=== PATIENT | male | born 1975 | race Caucasian/White ===

== ENCOUNTER 2020-11-26 10:41 | Observation (INO) | payer BC ==
[2020-11-26] MEDS ORDERED: Ketorolac 30 MG/ML SDV IVPUSH PRN (10:51)
[2020-11-26] MEDS ORDERED: Morphine 2 MG/ML SYRINGE IVPUSH PRN (10:51)
[2020-11-26] MEDS ORDERED: Ondansetron 4 MG/2 ML SDV IV PRN (10:51)
[2020-11-26] MEDS ORDERED: Sodium Chloride 0.9% 10 ML Syringe FLUSH PRN (10:51)
[2020-11-26] MEDS: Sodium Chloride 0.9% 1,000 ML IV SCH ×2 (11:37→21:34)
--- NOTE | 2020-11-26 11:37 | PCM.HP.2 ---
H&P History of Present Illness - General Date of Service: 11/26/20 Admit Problem/Dx: Admission Diagnosis/Problem Admission Diagnosis/Problem Flank pain Source of Information: Patient, Old Records History Limitations: Reports: No Limitations Left Flank Pain Score (Numeric/FACES): 7 - Related Data Allergies/Adverse Reactions: Allergies Allergy/AdvReac Type Severity Reaction Status Date / Time No Known Allergies Allergy Verified 11/26/20 10:49 Home Medications: Home Meds amLODIPine [Norvasc] 10 mg PO DAILY 11/04/18 [History] Ascorbic Acid [Vitamin C] 250 mg PO DAILY 11/26/20 [History] Aspirin [Ecotrin EC] 81 mg PO DAILY 11/26/20 [History] Betamethasone/Clotrimazole [Lotrisone] 0.5 gm TOP BID 11/26/20 [History] Calcium Carb/Magnesium Hydrox [Rolaids Chewable Tablet] 1 each PO ASDIRECTED PRN 11/26/20 [History] Cholecalciferol (Vitamin D3) [Vitamin D3] 1,000 unit PO DAILY 11/26/20 [History] Milk Thistle 500 mg PO DAILY 11/26/20 [History] Non-Formulary Medication [NF Drug] 1 tab PO DAILY 11/26/20 [History] Omeprazole 20 mg PO DAILY PRN 11/26/20 [History] Phentermine HCl [Adipex-P] 37.5 mg PO DAILY 11/26/20 [History] Topiramate [Topamax] 25 mg PO DAILY 11/26/20 [History] Vitamin E 100 units PO DAILY 11/26/20 [History] Tamsulosin [Flomax] 0.4 mg PO PCBREAKFAST #14 cap.er 11/27/20 [Rx] Past Medical History HEENT History: Reports: None Cardiovascular History: Reports: Hypertension Respiratory History: Reports: None Gastrointestinal History: Reports: GERD Genitourinary History: Reports: None Musculoskeletal History: Reports: None Neurological History: Reports: None Psychiatric History: Reports: None Endocrine/Metabolic History: Reports: Obesity/BMI 30+ Hematologic History: Reports: None Oncologic (Cancer) History: Reports: None Dermatologic History: Reports: None - Infectious Disease History Infectious Disease History: Reports: None - Past Surgical History HEENT Surgical History: Reports: None GI Surgical History: Reports: None Musculoskeletal Surgical History: Reports: None Social & Family History - Caffeine Use Caffeine Use: Reports: Soda H&P Review of Systems - Review of Systems: Review Of Systems: See Below General: Reports: No Symptoms. Denies: Fever, Chills, Weakness, Decreased Appetite HEENT: Reports: No Symptoms. Denies: Headaches, Sore Throat Pulmonary: Reports: No Symptoms. Denies: Shortness of Breath, Wheezing, Cough Cardiovascular: Reports: No Symptoms. Denies: Chest Pain, Palpitations, Edema Gastrointestinal: Reports: No Symptoms. Denies: Constipation, Diarrhea Genitourinary: Reports: Hematuria, Flank Pain Skin: Reports: No Symptoms Psychiatric: Reports: No Symptoms Neurological: Reports: No Symptoms Hematologic/Lymphatic: Reports: No Symptoms Immunologic: Reports: No Symptoms Exam - Exam Exam: See Below - Vital Signs Vital Signs: Last Vital Signs Temp 96 F L 11/26/20 10:44 Pulse 67 11/26/20 10:44 Resp 26 H 11/26/20 10:44 BP 139/86 11/26/20 10:44 Pulse Ox 98 11/26/20 10:51 Weight: 331 lb 3.2 oz - Exam Quality Assessment: No: Supplemental Oxygen, Urinary Catheter General: Alert, Oriented, Cooperative HEENT: Conjunctiva Clear, Mucosa Moist & [place], Pupils Equal Neck: Supple, Trachea Midline Lungs: Clear to Auscultation, Normal Respiratory Effort Cardiovascular: Regular Rate, Regular Rhythm GI/Abdominal Exam: Normal Bowel Sounds, Soft, Non-Tender, No Distention (Male) Exam: Deferred Rectal (Males) Exam: Deferred Back Exam: Normal Inspection, Full Range of Motion Extremities: Normal Inspection, Normal Range of Motion, Non-Tender, No Pedal E rei, Normal Capillary Refill Peripheral Pulses: 2+: Dorsalis Pedis (L), Dorsalis Pedis (R) Skin: Warm, Dry, Intact Neurological: Cranial Nerves Intact, Reflexes Equal Bilateral Neuro Extensive - Mental Status: Alert, Oriented x3, Normal Mood/Affect, Normal Cognition, Memory Intact Neuro Extensive - Motor, Sensory, Reflexes: Normal Gait, Normal Reflexes Psychiatric: Alert, Normal Affect, Normal Mood - Patient Data Result Diagrams: 11/27/20 07:15 11/26/20 11:25 Sepsis Event Note - Focused Exam Vital Signs: Vital Signs Temp Pulse Resp BP Pulse Ox Pulse Ox 11/26/20 10:51 98 11/26/20 10:44 96 F L 67 26 H 139/86 98 Problem List Initiated/Reviewed/Updated: Yes Orders Last 24hrs: Active Orders 24 hr Category Date Time Status Patient Status [ADT] Routine ADT 11/26/20 10:51 Ordered Intake and Output [RC] QSHIFT Care 11/26/20 10:51 Ordered Oxygen Therapy [RC] PRN Care 11/26/20 10:51 Ordered Peripheral IV Care [RC] . DIRECTED Care 11/26/20 10:52 Ordered Up ad Katie [RC] ASDIRECTED Care 11/26/20 10:51 Ordered VTE/DVT Education [RC] PER UNIT ROUTINE Care 11/26/20 10:51 Ordered Vital Signs [RC] Q4H Care 11/26/20 10:51 Ordered Clear Liquid Diet [DIET] Diet 11/26/20 Lunch Ordered Abdomen wo Cont [CT] Routine Exams 11/26/20 10:56 Ordered C-REACTIVE PROTEIN [CHEM] Stat Lab 11/26/20 10:51 Ordered CBC WITH AUTO DIFF [HEME] Stat Lab 11/26/20 10:51 Ordered COMPREHENSIVE METABOLIC PN,CMP [CHEM] Stat Lab 11/26/20 10:51 Ordered CORONAVIRUS COVID-19 RAPID [MOLEC] Stat Lab 11/26/20 10:45 Ordered Ketorolac [Toradol] Med 11/26/20 10:51 Ordered 30 mg IVPUSH Q6H PRN Morphine Med 11/26/20 10:51 Ordered 3 mg IVPUSH Q4H PRN Ondansetron [Zofran] Med 11/26/20 10:51 Ordered 4 mg IV Q6H PRN Sodium Chloride 0.9% [Normal Saline] 1,000 ml Med 11/26/20 11:00 Ordered IV ASDIRECTED Sodium Chloride 0.9% [Saline Flush] Med 11/26/20 10:51 Ordered 10 ml FLUSH Q8HR PRN Peripheral IV Insertion Adult [OM.PC] Routine Oth 11/26/20 10:51 Ordered Resuscitation Status Routine Resus Stat 11/26/20 10:51 Ordered Medication Orders Sodium Chloride (Normal Saline) 1,000 mls @ 100 mls/hr IV ASDIRECTED MIRIAM Ketorolac Tromethamine (Ketorolac 30 Mg/Ml Sdv) 30 mg IVPUSH Q6H PRN PRN Reason: Pain (moderate 4-6) Morphine Sulfate (Morphine 2 Mg/Ml Syringe) 3 mg IVPUSH Q4H PRN PRN Reason: Pain (severe 7-10) Ondansetron HCl (Ondansetron 4 Mg/2 Ml Sdv) 4 mg IV Q6H PRN PRN Reason: Nausea/Vomiting Sodium Chloride (Sodium Chloride 0.9% 10 Ml Syringe) 10 ml FLUSH Q8H PRN PRN Reason: keep vein open Assessment/Plan Comment:: HPI summary: Luis Antonio is a 44y obese male patient who presented to the [facility] this morning complaining of acute onset sharp pains to the left flank area which radiated to the left abdomen. Pain started while he was on his way to work around [address] Grove, patient was pacing around the exam room and it was difficult to obtain a comprehensive history and exam during office visit due to reported severe flank pain. UA dipstick obtained at [facility] indicates moderate blood and trace protein, otherwise negative. Patient refused ketorolac in clinic stating he wanted to just go to the hospital. Patient was referred to medical information specialist provider for direct admission to rule out renal stone given acute onset of sharp flank pain and hematuria. Patient admitted on observation status for renal stone workup including CBC, CMP, CT abdomen/pelvis without contrast. Will initiate IV fluids at 100ml/hr and strain urine for renal stones. Hospital course: 11/26/20: Patient appears rather comfortable lying in bed upon admit to [facility]. Patient states his pain has been reportedly rather severe at 10/10 at times. Pain currently 7/10 and sharp in nature. Denies a history of similar pain or past kidney stones. Denies gross hematuria. He has otherwise been feeling well. Denies fever chills, headache, sore throat, abdominal pain, constipation, diarrhea. VSS: T 96, HR 67, BP 139/86, RR 26, O2 98% on room air. Hospitalization problems and plan: # Left flank pain - Morphine 3mg Q4H PRN severe pain; Ketorolac 30mg IV Q6H PRN moderate pain - CBC - mild leukocytosis with WBC 12.27, 83.2% neutrophils; repeat CBC in am. - CMP - Na 142, K 4.1, BUN 19, Creatinine 1.08, GFR > 60. - CRP slightly elevated at 1.9 - CT abdomen/pelvis without contrast result indicates non-specific stranding of the perinephritic and periureter which could relate to urinary infection or recent stone passage. UA dipstick not indicative of infectious process. Urine micro pending. Non-obstructing left intrarenal calculus also identified. # Non-obstructing intrarenal calculus - will start patient on flomax 0.4mg PO daily tomorrow - one time dose of lasix 20mg to promote stone passage per Dr Wesley # Hematuria - Moderate amount of blood noted per UA dipstick in [place]; urine microscopic pending. # Nausea - Ondansetron 4mg IV Q6H PRN, nausea Chronic, stable conditions: # Hypertension - continue amlodipine 10mg PO daily # Vitamin D deficiency - continue cholecalciferol daily # Obesity - BMI 46 - continue topamax 25mg PO daily, will hold phentermine per pharmacy request during hospital stay # GERD - continue omeprazole 20mg PO daily # Fatty liver disease # Hx of cholelithiasis without cholecystitis # Family history of heart disease - continue aspirin 81mg PO daily Hospitalization details: # FEN: NS @ 100ml/hr, clear liquid diet # PPX: No DVT ppx indicated, patient ambulatory. Continue home med of omeprazole # Code status: FULL CODE # Emergency contact: Simba (brother): [phone] # Disposition: I anticipate less than 2 midnights for renal stone rule out and treatment as indicated. Patient observation status pending CT results as well as labs. - Mortality Measure Prognosis:: Good
[2020-11-26] MEDS ORDERED: Omeprazole 20 MG Cap.CR PO PRN (11:41)
[2020-11-26 11:57] LABS: ANION GAP 16.5 mmol/L (5-15); CHLORIDE,CL 106 mmol/L (98-107); SODIUM,NA 142 mmol/L (136-145)
--- NOTE | 2020-11-26 12:41 | CT ---
[id number] CT/CT Abdomen Pelvis WO IV EXAM: ABDOMEN AND PELVIS CT WITHOUT CONTRAST INDICATION: RULE OUT RENAL STONE. COMPARISON: None. DISCUSSION: 4 mm nonobstructing left intrarenal calculus. Possible punctate nonobstructing right intrarenal calculus. Minimal left perinephric and periureteral stranding. This could be from urinary tract infection or recently passed stone. Cholelithiasis without CT evidence of acute cholecystitis. Ultrasound could provide further evaluation. Unenhanced images of the liver, pancreas, spleen, adrenal glands, small bowel, large bowel and the appendix are unremarkable. No adenopathy, free air free fluid. Scattered degenerative changes in the spine. The osseous structures are otherwise unremarkable. IMPRESSION: 1. Mild left perinephric and periureteral stranding is nonspecific, but could relate to a urinary tract infection or recent stone passage. No ureteral calculus or hydronephrosis. There are couple of tiny nonobstructing intrarenal calculi. 2. Cholelithiasis. Ronny Joshua MD 11/26/20 [id number] Thank you for allowing us to participate in the care of your patient.
[2020-11-26] MEDS ORDERED: Furosemide 40 MG/4 ML VIAL IVPUSH ONE (14:51)
[2020-11-26] MEDS ORDERED: Morphine 4 MG/ML Syringe IVPUSH PRN (15:15)
[2020-11-27] MEDS: Sodium Chloride 0.9% 1,000 ML IV SCH (07:24)
[2020-11-27] MEDS ORDERED: Cholecalciferol (Vitamin D3) 25 MCG Tab PO SCH (09:00)
[2020-11-27] MEDS ORDERED: Topiramate 25 MG Tab PO SCH (09:00)
[2020-11-27] MEDS ORDERED: Aspirin 81 MG Tab.EC PO SCH (09:00)
[2020-11-27] MEDS ORDERED: amLODIPine 5 MG Tab PO SCH (09:00)
[2020-11-27] MEDS ORDERED: PHENTERMINE HCL 37.5 MG PO SCH (09:00)
[2020-11-27] MEDS ORDERED: Tamsulosin 0.4 MG Cap.ER PO SCH (09:00)
[2020-11-27] MEDS ORDERED: amLODIPine 5 MG Tab **PTOM PO SCH (09:03)
[2020-11-27] MEDS ORDERED: TOPIRAMATE 25 MG PO SCH (09:05)
--- NOTE | 2020-11-27 10:16 | PCM.DCSUM1 ---
Discharge Summary - Hospital Course Free Text/Narrative:: Date of admission: 11/26/20 Date of discharge: 11/27/20 Admission diagnoses: # Left flank pain # Non-obstructing intrarenal calculus # Hematuria # Nausea Discharge diagnoses: # Hypertension - continue amlodipine 10mg PO daily # Vitamin D deficiency - continue cholecalciferol daily # Obesity - BMI 46 - continue topamax 25mg PO daily, will hold phentermine per pharmacy request during hospital stay # GERD - continue omeprazole 20mg PO daily # Fatty liver disease # Hx of cholelithiasis without cholecystitis # Family history of heart disease - continue aspirin 81mg PO daily Hospital course: HPI summary: Luis Antonio is a 44y obese male patient who presented to the [facility] clinic this morning complaining of acute onset sharp pains to the left flank area which radiated to the left abdomen. Pain started while he was on his way to work around [address] Grove, patient was pacing around the exam room and it was difficult to obtain a comprehensive history and exam during office visit due to reported severe flank pain. UA dipstick obtained at [facility] indicates moderate blood and trace protein, otherwise negative. Patient refused ketorolac in clinic stating he wanted to just go to the hospital. Patient was referred to optimization engineer provider for direct admission to rule out renal stone given acute onset of sharp flank pain and hematuria. Patient admitted on observation status for renal stone workup including CBC, CMP, CT abdomen/pelvis without contrast. Will initiate IV fluids at 100ml/hr and strain urine for renal stones. 11/26/20: Patient appears rather comfortable lying in bed upon admit to [facility]. Patient states his pain has been reportedly rather severe at 10/10 at times. Pain currently 7/10 and sharp in nature. Denies a history of similar pain or past kidney stones. Denies gross hematuria. He has otherwise been feeling well. Denies fever chills, headache, sore throat, abdominal pain, constipation, diarrhea. VSS: T 96, HR 67, BP 139/86, RR 26, O2 98% on room air. 11/27/20: Patient reports mild constipation this morning, denies other concerns. No flank pain or nausea. Vitals stable T 97.4, HR 87, BP 125/75, RR 20, O2 98% on room air. Urine microscopy completed at [place] indicates RBC 3-5/hpf and occasional bacteria. No indication of urinary tract infection, no urine culture indicated. WBC normalized this morning on repeat labs to 6.9, neutrophils 59%. No further renal stones passed during overnight hospital stay. Suspect severe flank pain which prompted clinic visit yesterday morning occurred when stone was passing given stranding noted on CT abdomen/pelvis. Patient to be discharged home this morning due to resolution of symptoms. Discharge and follow-up recommendations: - Discharge to home per self care - New medications at discharge: Flomax 0.4mg PO daily - Follow-up with CAIT Harkins on 12/10/20 as previously scheduled. - Discharge Data Discharge Date: 11/27/20 Discharge Disposition: Home, Self-Care 01 Condition: Good - Referral to Home Health Primary Care Physician: CAIT Nolasco-C - Patient Instructions Diet: Usual Diet as Tolerated Driving: May Drive Today Showering/Bathing: May Shower Notify Provider of: Increased Pain, Nausea and/or Vomiting - Discharge Plan *PRESCRIPTION DRUG MONITORING PROGRAM REVIEWED*: Not Applicable *COPY OF PRESCRIPTION DRUG MONITORING REPORT IN PATIENT BHUMI: Not Applicable Prescriptions/Med Rec: Tamsulosin [Flomax] 0.4 mg PO PCBREAKFAST #14 cap.er Home Medications: Home Meds amLODIPine [Norvasc] 10 mg PO DAILY 11/04/18 [History] Ascorbic Acid [Vitamin C] 250 mg PO DAILY 11/26/20 [History] Aspirin [Ecotrin EC] 81 mg PO DAILY 11/26/20 [History] Betamethasone/Clotrimazole [Lotrisone] 0.5 gm TOP BID 11/26/20 [History] Calcium Carb/Magnesium Hydrox [Rolaids Chewable Tablet] 1 each PO ASDIRECTED PRN 11/26/20 [History] Cholecalciferol (Vitamin D3) [Vitamin D3] 1,000 unit PO DAILY 11/26/20 [History] Milk Thistle 500 mg PO DAILY 11/26/20 [History] Non-Formulary Medication [NF Drug] 1 tab PO DAILY 11/26/20 [History] Omeprazole 20 mg PO DAILY PRN 11/26/20 [History] Phentermine HCl [Adipex-P] 37.5 mg PO DAILY 11/26/20 [History] Topiramate [Topamax] 25 mg PO DAILY 11/26/20 [History] Vitamin E 100 units PO DAILY 11/26/20 [History] Tamsulosin [Flomax] 0.4 mg PO PCBREAKFAST #14 cap.er 11/27/20 [Rx] Oxygen Therapy Mode: Room Air - Discharge Summary/Plan Comment DC Time >30 min.: Yes - General Info Date of Service: 11/27/20 Functional Status: Reports: Pain Controlled, Tolerating Diet, Ambulating, Urinating. Denies: New Symptoms - Review of Systems General: Reports: No Symptoms HEENT: Reports: No Symptoms Pulmonary: Reports: No Symptoms Cardiovascular: Reports: No Symptoms Gastrointestinal: Reports: Constipation (mild, bm this morning). Denies: Nausea Genitourinary: Reports: No Symptoms. Denies: Hematuria, Flank Pain Musculoskeletal: Reports: No Symptoms Skin: Reports: No Symptoms Neurological: Reports: No Symptoms Psychiatric: Reports: No Symptoms - Patient Data Vitals - Most Recent: Last Vital Signs Temp 97.4 F 11/27/20 06:46 Pulse 87 11/27/20 06:46 Resp 20 11/27/20 06:46 BP 155/86 H 11/27/20 09:13 Pulse Ox 98 11/27/20 06:46 Weight - Most Recent: 331 lb 3.2 oz I&O - Last 24 hours: Intake & Output 11/26/20 11/27/20 11/27/20 22:59 06:59 14:59 Intake Total 750 1773 Output Total 1700 600 Balance -950 1173 Lab Results - Last 24 hrs: Laboratory Results - last 24 hr 11/26/20 11/26/20 11/26/20 Range/Units 10:50 11:25 11:25 WBC 12.27 H (5.00-10.00) 10^3/uL RBC 5.56 (4.50-6.00) 10^6/uL Hgb 15.6 (13.0-17.0) g/dL Hct 46.6 (40.0-52.0) % MCV 83.8 (82.0-92.0) fL MCH 28.1 (27.0-31.0) pg MCHC 33.5 (32.0-36.0) g/dL RDW 13.0 (11.5-14.5) % Plt Count 200 (150-400) 10^3/uL MPV 9.2 (7.4-10.4) fL Immature Gran % (Auto) 0.2 (0.0-5.0) % Neut % (Auto) 83.2 H (50.0-70.0) % Lymph % (Auto) 10.2 L (20.0-40.0) % [place] % (Auto) 5.9 (2.0-8.0) % Eos % (Auto) 0.2 L (1.0-3.0) % Baso % (Auto) 0.3 (0.0-1.0) % Neut # (Auto) 10.21 H (2.50-7.00) 10^3/uL Lymph # (Auto) 1.25 (1.00-4.00) 10^3/uL [place] # (Auto) 0.73 (0.10-0.80) 10^3/uL Eos # (Auto) 0.02 L (0.10-0.30) 10^3/uL Baso # (Auto) 0.04 (0.00-0.10) 10^3/uL Immature Gran # (Auto) 0.02 (0.00-0.50) 10^3/uL Sodium 142 (136-145) mmol/L Potassium 4.1 (3.5-5.1) mmol/L Chloride 106 (98-107) mmol/L Carbon Dioxide 23.6 (21.0-32.0) mmol/L Anion Gap 16.5 H (5-15) mmol/L BUN 19 H (7-18) mg/dL Creatinine 1.08 (0.51-1.17) mg/dL Est Cr Clr Drug Dosing 92.96 mL/min Estimated GFR (MDRD) > 60 mL/min Glucose 114 (70-140) mg/dL Calcium 8.8 (8.7-10.3) mg/dL Total Bilirubin 0.5 (0.2-1.0) mg/dL AST 14 L (15-37) U/L ALT 22 (14-63) U/L Alkaline Phosphatase 109 (46-116) U/L C-Reactive Protein 1.9 H (0.0-0.9) mg/dL Total Protein 7.6 (6.4-8.2) g/dL Albumin 3.82 (3.40-5.00) g/dL SARS CoV-2 RNA Rapid JESSE Negative (NEGATIVE) 11/27/20 Range/Units 07:15 WBC 6.91 (5.00-10.00) 10^3/uL RBC 5.34 (4.50-6.00) 10^6/uL Hgb 14.9 (13.0-17.0) g/dL Hct 44.8 (40.0-52.0) % MCV 83.9 (82.0-92.0) fL MCH 27.9 (27.0-31.0) pg MCHC 33.3 (32.0-36.0) g/dL RDW 13.0 (11.5-14.5) % Plt Count 191 (150-400) 10^3/uL MPV 9.1 (7.4-10.4) fL Immature Gran % (Auto) 0.1 (0.0-5.0) % Neut % (Auto) 59.0 (50.0-70.0) % Lymph % (Auto) 27.1 (20.0-40.0) % [place]er % (Auto) 11.3 H (2.0-8.0) % Eos % (Auto) 1.9 (1.0-3.0) % Baso % (Auto) 0.6 (0.0-1.0) % Neut # (Auto) 4.08 (2.50-7.00) 10^3/uL Lymph # (Auto) 1.87 (1.00-4.00) 10^3/uL Hettinger # (Auto) 0.78 (0.10-0.80) 10^3/uL Eos # (Auto) 0.13 (0.10-0.30) 10^3/uL Baso # (Auto) 0.04 (0.00-0.10) 10^3/uL Immature Gran # (Auto) 0.01 (0.00-0.50) 10^3/uL Sodium (136-145) mmol/L Potassium (3.5-5.1) mmol/L Chloride (98-107) mmol/L Carbon Dioxide (21.0-32.0) mmol/L Anion Gap (5-15) mmol/L BUN (7-18) mg/dL Creatinine (0.51-1.17) mg/dL Est Cr Clr Drug Dosing mL/min Estimated GFR (MDRD) mL/min Glucose (70-140) mg/dL Calcium (8.7-10.3) mg/dL Total Bilirubin (0.2-1.0) mg/dL AST (15-37) U/L ALT (14-63) U/L Alkaline Phosphatase (46-116) U/L C-Reactive Protein (0.0-0.9) mg/dL Total Protein (6.4-8.2) g/dL Albumin (3.40-5.00) g/dL SARS CoV-2 RNA Rapid JESSE (NEGATIVE) Med Orders - Current: Current Medications Amlodipine Besylate (Amlodipine 5 Mg Tab Ptom) 10 mg PO DAILY [facility] Last Admin: 11/27/20 09:13 Dose: 10 mg Documented by: Aspirin (Aspirin 81 Mg Tab.Ec) 81 mg PO DAILY [facility] Last Admin: 11/27/20 09:13 Dose: 81 mg Documented by: Cholecalciferol (Cholecalciferol (Vitamin D3) 25 Mcg Tab) 25 mcg PO DAILY [facility] Last Admin: 11/27/20 09:13 Dose: 25 mcg Documented by: Sodium Chloride (Normal Saline) 1,000 mls @ 100 mls/hr IV ASDIRECTED [facility] Last Admin: 11/27/20 07:24 Dose: 100 mls/hr Documented by: Ketorolac Tromethamine (Ketorolac 30 Mg/Ml Sdv) 30 mg IVPUSH Q6H PRN PRN Reason: Pain (moderate 4-6) Last Admin: 11/26/20 11:41 Dose: 30 mg Documented by: Morphine Sulfate (Morphine 4 Mg/Ml Syringe) 3 mg IVPUSH Q4H PRN PRN Reason: Pain (severe 7-10) Omeprazole (Omeprazole 20 Mg Cap.Cr) 20 mg PO DAILY PRN PRN Reason: Heartburn Ondansetron HCl (Ondansetron 4 Mg/2 Ml Sdv) 4 mg IV Q6H PRN PRN Reason: Nausea/Vomiting Last Admin: 11/26/20 11:41 Dose: 4 mg Documented by: Sodium Chloride (Sodium Chloride 0.9% 10 Ml Syringe) 10 ml FLUSH Q8H PRN PRN Reason: keep vein open Tamsulosin HCl (Tamsulosin 0.4 Mg Cap.Er) 0.4 mg PO PCBREAKFAST [facility] Last Admin: 11/27/20 09:13 Dose: 0.4 mg Documented by: Topiramate (Topiramate 25 Mg Tab Ptom) 25 mg PO DAILY [facility] Last Admin: 11/27/20 09:15 Dose: 25 mg Documented by: Discontinued Medications Amlodipine Besylate (Amlodipine 5 Mg Tab) 10 mg PO DAILY [facility] Last Admin: 11/27/20 09:17 Dose: Not Given Documented by: Furosemide (Furosemide 40 Mg/4 Ml Vial) 20 mg IVPUSH NOW ONE Stop: 11/26/20 14:52 Last Admin: 11/26/20 15:09 Dose: 20 mg Documented by: Morphine Sulfate (Morphine 2 Mg/Ml Syringe) 3 mg IVPUSH Q4H PRN PRN Reason: Pain (severe 7-10) Topiramate (Topiramate 25 Mg Tab) 25 mg PO DAILY [facility] Last Admin: 11/27/20 09:18 Dose: Not Given Documented by: - Exam Quality Assessment: Denies: DVT Prophylaxis General: Reports: Alert, Oriented, Cooperative, No Acute Distress HEENT: Reports: Pupils Equal, Pupils Reactive, Mucous Membr. Moist/[place] Neck: Reports: Supple, Trachea Midline Lungs: Reports: Clear to Auscultation, Normal Respiratory Effort Cardiovascular: Reports: Regular Rate, Regular Rhythm, No Murmurs GI/Abdominal Exam: Normal Bowel Sounds, Soft, Non-Tender, No Distention (Male) Exam: Deferred Rectal (Males) Exam: Deferred Back Exam: Reports: Normal Inspection, Full Range of Motion. Denies: CVA Tenderness (L) Extremities: Normal Inspection, Normal Range of Motion, Non-Tender, No Pedal Edema, Normal Capillary Refill Skin: Reports: Warm, Dry, Intact Neurological: Reports: No New Focal Deficit Psy/Mental Status: Reports: Alert, Normal Affect, Normal Mood
== END 2020-11-27 10:40 | disposition home or self-care (01) ==
LOC: KA.MS 10:41
PROVIDERS: ADMIT Nurse Practitioner Family; ATTEND Family Medicine
DX: N20.0 Calculus of kidney (principal); I10 Essential (primary) hypertension; K21.9 Gastro-esophageal reflux disease without esophagitis; E66.9 Obesity, unspecified; R31.9 Hematuria, unspecified; E55.9 Vitamin D deficiency, unspecified; K76.0 Fatty (change of) liver, not elsewhere classified; Z82.49 Family history of ischemic heart disease and other diseases of the circulatory system; Z79.899 Other long term (current) drug therapy; Z68.42 Body mass index [BMI] 45.0-49.9, adult; Z79.82 Long term (current) use of aspirin; Z20.822 Contact with and (suspected) exposure to COVID-19
CPT/HCPCS: 36415; 74176; 80053; 85025; 86140; 96374; 96375; A9270-GY; G0378; J1885; J1940; J2405; J7030; U0002